=== PATIENT | male | born 1955 | race Caucasian/White ===

== ENCOUNTER 2019-01-14 17:20 | Emergency (ER) | payer SELFPAY ==
[2019-01-14] MEDS ORDERED: Diph,Pert(Acell),Tet Vac 0.5 ML SYR IM ONE (18:13)
--- NOTE | 2019-01-14 18:19 | Emergency Department Record ---
History of Present Illness - General Chief Complaint: Laceration(s) Stated Complaint: LAC ON R MIDDLE FINGER Time Seen by Provider: 01/14/19 18:12 Source: Patient Mode of Arrival: Ambulatory Limitations: No limitations - History of Present Illness Initial Commments: 63 yo male presents to ED for evaluation following a crush injury to the right middle finger. Patient reports that he was working with metal parts when the tuft of the finger became pinched resulting in laceration and injury. Patient reports that the injury occurred several hours ago, denies other injury on examination. Patient denies health problems at his baseline, reports that his last tetanus has been > 5 years. -: Hour(s) Extremity Location: Right: Hand Context: Accidental Associated Symptoms: Pain Treatments Prior to Arrival: Bandage - Cecil Coma Scale Eye Response: (4) Open spontaneously Motor Response: (6) Obeys commands Verbal Response: (5) Oriented [place]mer Total: 15 - Related Data Hx Tetanus Toxoid Vaccination: Yes Patient Tetanus UTD (within 5 yrs): No Previous Rx's Medication Instructions Recorded Cephalexin [Keflex] 500 mg PO QID #39 cap 01/14/19 Allergies Allergy/AdvReac Type Severity Reaction Status Date / Time No Known Drug Allergies Allergy Verified 01/14/19 18:14 Review of Systems Constitutional: Denies: Chills, Fever, Malaise, Night sweats Eyes: Denies: Eye discharge, Eye pain ENT: Denies: Congestion, Ear pain, Epistaxis Respiratory: Denies: Cough, Dyspnea Cardiovascular: Denies: Chest pain, Dyspnea on exertion Endocrine: Denies: Fatigue, Heat or cold intolerance Gastrointestinal: Denies: Abdominal pain, Nausea, Vomiting Genitourinary: Denies: Incontinence, Retention Musculoskeletal: Denies: Arthralgia, Back pain, Gout, Joint swelling Skin: Reports: Other (Finger laceration). Denies: Bruising, Change in color Neurological: Denies: Tingling, Tremors Psychiatric: Denies: Anxiety Hematological/Lymphatic: Denies: Anemia, Blood Clots Physical Exam - General General Appearance: Alert, Oriented x3, Cooperative, Mild distress Limitations: No limitations - Head Head exam: Atraumatic, Normocephalic, Normal inspection Head exam detail: negative: Abrasion, Contusion, Felton's sign, General tenderness, Hematoma, Laceration - Eye Eye exam: Normal appearance. negative: Conjunctival injection, Periorbital swelling, Periorbital tenderness, Scleral icterus - ENT Ear exam: negative: Auricular hematoma, Auricular trauma Nasal Exam: negative: Active bleeding, Discharge, Dried blood, Foreign body Mouth exam: negative: Drooling, Laceration, Muffled voice, Tongue elevation - Neck Neck exam: Normal inspection. negative: Meningismus, Tenderness - Respiratory Respiratory exam: Normal lung sounds bilaterally. negative: Respiratory distress, Rhonchi, Stridor, Wheezes - Cardiovascular Cardiovascular Exam: Regular rate, Normal rhythm, Normal heart sounds - GI/Abdominal GI/Abdominal exam: Soft. negative: Rebound, Rigid, Tenderness - Rectal Rectal exam: Deferred - exam: Deferred - Extremities Extremities exam: Tenderness, Other (2.5 cm laceration involving the tuft of the right middle digit, FROM, no evidence for tendon injury/laceration on exmaination, flexion/extension are intact against resistance. ). negative: Calf tenderness, Pedal edema - Back Back exam: Denies: CVA tenderness (R), CVA tenderness (L) - Neurological Neurological exam: Alert, Normal gait, Oriented X3 - Psychiatric Psychiatric exam: Normal affect, Normal mood - Skin Skin exam: Normal color. negative: Abrasion Type of lesion: negative: abrasion Course - Reevaluation(s) Reevaluation #1: 01/14/19 19:15 Right middle finger: No acute fracture identified Procedure Note: 2.5 cm laceration to the tuft of the right middle finger, bleeding controlled. Wound was irrigated with 1000 mL NS via jet irrigation, cleaned and prepped in sterile fashion, no residual FB identified on examination. Wound was anesthetized with 1.0 mL of 1% Lidocaine without epinephrine with good anesthesia via digital nerve block, and the laceration was repaired with 4-0 Prolene sutures (#7) in interrupted fashion. Patient tolerated the procedure well without complications. Tetanus was updated prior to discharge. Patient was discharged home with Keflex as well. Disposition Disposition: Discharge Clinical Impression: Finger laceration Qualifiers: Encounter type: initial encounter Finger: middle finger Damage to nail status: without damage Foreign body presence: without foreign body Laterality: right Qualified Code(s): S61.212A - Laceration without foreign body of right middle finger without damage to nail, initial encounter Disposition: Home, Self-Care Condition: (2) Stable Instructions: Laceration (ED) Additional Instructions: Return to the emergency department if your symptoms worsen or if you have any concerns. Keflex as directed. Sutures out in 10-14 days. Follow-up with your family doctor in [place] in 5-7 days as directed. Prescriptions: Cephalexin [Keflex] 500 mg PO QID #39 cap Forms: Patient Portal Access Time of Disposition: 18:19 Quality - Quality Measures Quality Measures: N/A - Blood Pressure Screening Does Patient Have Any of the Following: No Blood Pressure Classification: Hypertensive Reading Systolic Measurement: 160 Diastolic Measurement: 72 Screening for High Blood Pressure: < First Hypertensive BP, F/U Documented > [[id number]] First Hypertensive Follow-up Interventions: Referral to alternative/primary care provider.
--- NOTE | 2019-01-15 15:04 | RADIOLOGY REPORT ---
DATE: 01/14/2019. EXAM: RIGHT THIRD DIGIT. HISTORY: INJURY. TECHNIQUE: Three views of the right third digit were performed. FINDINGS: There is soft tissue swelling. No evidence of fracture. No radiopaque foreign body. IMPRESSION: SOFT TISSUE SWELLING. NO RADIOPAQUE FOREIGN BODY. Job Number: [id number] MTDD
== END 2019-01-14 19:09 | disposition home or self-care (01) ==
LOC: ER 17:20
DX: S61.212A Laceration without foreign body of right middle finger without damage to nail, initial encounter (principal); W31.89XA Contact with other specified machinery, initial encounter
CPT/HCPCS: 12001; 73140; 90715; 96372; 99283; 99284